=== PATIENT | female | born 1960 ===

== ENCOUNTER 2018-06-22 00:46 | Emergency (ER) | payer MEDICAID, OTHER ==
[2018-06-22 00:47] VITALS: BMI 36.2
[2018-06-22 01:05] VITALS: TEMP 98
[2018-06-22 02:10] LABS: BASO # 0.1 K/uL (0.0-0.2); EOS # 0.1 K/uL (0.0-0.7); EOS % 1.9 % (0.0-4.0); HEMOGLOBIN 11.8 g/dL (12.0-16.0); LYMPH # 1.4 K/uL (1.0-4.3); LYMPH % 23.8 % (20.0-40.0); MEAN CELL VOLUME 91.3 fl (81.0-99.0); MEAN CORPUSCULAR HEMOGLOBIN 30.2 pg (27.0-31.0); MEAN CORPUSCULAR HGB CONC 33.1 g/dL (33.0-37.0); MEAN PLATELET VOLUME 9.9 fl (7.2-11.7); MONO # 0.5 K/uL (0.0-0.8); MONO % 8.2 % (0.0-10.0); NEUT # 3.8 K/uL (1.8-7.0); NEUT % 65.1 % (50.0-75.0); RBC 3.9 Mil/uL (3.80-5.20); RED CELL DISTRIBUTION WIDTH 14.1 % (11.5-14.5); WHITE BLOOD COUNT 5.8 K/uL (4.8-10.8)
--- NOTE | 2018-06-22 02:14 | ED PDOC ---
HPI: Hypertension/Hypotension Time Seen by Provider: 06/22/18 01:11 Chief Complaint (Nursing): High Blood Pressure Chief Complaint (Provider): High Blood Pressure History Per: Patient History/Exam Limitations: no limitations Onset/Duration Of Symptoms: Days (x1) Current Symptoms Are (Timing): Better Additional Complaint(s): 57 year old female with pmHx of HTN, arrives to ED for an evaluation of elevated blood pressure. Patient states she had abdominal discomfort and urine frequency, which has resolved, but consistent with similar symptoms when her blood pressure is high. She further reports taking her Lisinopril three times today (prescribed for once daily) for relief. PMD: none provided Past Medical History Reviewed: Historical Data, Nursing Documentation, Vital Signs Vital Signs: Last Vital Signs Temp 98.0 F 06/22/18 00:53 Pulse 57 L 06/22/18 00:53 Resp 17 06/22/18 00:53 BP 173/105 H 06/22/18 00:53 Pulse Ox 99 06/22/18 00:53 - Medical History PMH: HTN - Surgical History Surgical History: Cholecystectomy - Family History Family History: States: Unknown Family Hx - Social History Current smoker - smoking cessation education provided: No Alcohol: None Drugs: Denies - Home Medications Home Medications: Ambulatory Orders Medication Instructions Recorded Hydrochlorothiazide [Microzide] 12.5 mg PO DAILY #10 cap 07/25/16 - Allergies Allergies/Adverse Reactions: Allergies Allergy/AdvReac Type Severity Reaction Status Date / Time No Known Allergies Allergy Verified 06/22/18 00:53 Review of Systems ROS Statement: Except As Marked, All Systems Reviewed And Found Negative Gastrointestinal: Positive for: Abdominal Pain (discomfort - resolved). Negative for: Nausea, Vomiting Genitourinary Female: Positive for: Other (urgency - resolved) Physical Exam - Reviewed Nursing Documentation Reviewed: Yes Vital Signs Reviewed: Yes - Physical Exam Appears: Positive for: Well, Non-toxic, No Acute Distress Head Exam: Positive for: ATRAUMATIC, NORMAL INSPECTION, NORMOCEPHALIC Skin: Positive for: Normal Color Eye Exam: Positive for: Normal appearance, EOMI, PERRL ENT: Positive for: Normal ENT Inspection Neck: Positive for: Normal Cardiovascular/Chest: Positive for: Regular Rate, Rhythm, Chest Non Tender Respiratory: Positive for: Normal Breath Sounds. Negative for: Respiratory Distress Gastrointestinal/Abdominal: Positive for: Normal Exam, Soft, Other (obese). Negative for: Tenderness Extremity: Positive for: Normal ROM (upper/lower). Negative for: Pedal Edema Neurologic/Psych: Positive for: Alert, Oriented. Negative for: Motor/Sensory Deficits - Laboratory Results Result Diagrams: 06/22/18 02:07 06/22/18 02:07 - ECG O2 Sat by Pulse Oximetry: 99 (RA) Pulse Ox Interpretation: Normal Medical Decision Making Medical Decision Making: Initial Impression: 57 year old female with urinary symptoms and abdominal discomfort in setting of known HTN. Initial Plan: * EKG * Labs Time: 312 --Labs reviewed: no significant clinical abnormality. B/P shows markable improvement. --Upon further discussion with patient, she admits that she does not take her BP medication daily as prescribed. Provider reinforces the importance of taking Lisinopril in regular daily intervals as instructed. Patient is medically stable and requires no further treatment in the ED at this time. However, upon giving discharge papers, patient becomes tearful, reports feeling depressed, and requesting to speak to a die lay out worker. --Crisis evaluation initiated. Scribe Attestation: Documented by Binta Victoria, acting as a scribe for Jarod Waddell MD. Provider Scribe Attestation: All medical record entries made by the Scribe were at my direction and personally dictated by me. I have reviewed the chart and agree that the record accurately reflects my personal performance of the history, physical exam, medical decision making, and the department course for this patient. I have also personally directed, reviewed, and agree with the discharge instructions and disposition. Disposition - Clinical Impression Clinical Impression: Hypertension - Patient ED Disposition Is Patient to be Admitted: No Counseled Patient/Family Regarding: Studies Performed, Diagnosis, Need For Followup - Disposition Disposition: Routine/Home Disposition Time: 03:13 Condition: STABLE Instructions: High Blood Pressure in Adults, Controlling Your Blood Pressure Through Lifestyle Forms: [employer] (Occitan)
[2018-06-22 02:19] LABS: ALB/GLOB RATIO 1.3 (1.0-2.1); ALBUMIN 4.5 g/dL (3.5-5.0); ALT/SGPT 25 U/L (9-52); AST/SGOT 34 U/L (14-36); BLOOD UREA NITROGEN 12 mg/dl (7-17); CALCIUM 9.1 mg/dL (8.4-10.2); GFR NON-AFRICAN AMERICAN > 60
[2018-06-22 02:52] VITALS: BP 163/95
[2018-06-22 02:53] VITALS: PULSE 52; RESP 16
[2018-06-22 02:56] LABS: SQUAMOUS EPITHIAL 1 /hpf (0-5); URINE BACTERIA OCC (<OCC); URINE BILIRUBIN NEGATIVE (NEGATIVE); URINE BLOOD SMALL (NEGATIVE); URINE CLARITY CLEAR (Clear); URINE COLOR STRAW (YELLOW); URINE GLUCOSE (UA) NEG (Normal); URINE LEUKOCYTE ESTERASE NEG Leu/uL (Negative); URINE PROTEIN NEGATIVE (NEGATIVE); URINE UROBILINOGEN 0.2-1.0 mg/dL (0.2-1.0)
[2018-06-22 03:17] VITALS: O2SAT 99
--- NOTE | 2018-06-22 17:42 | CARD ---
APPROVED REPORT Date of service: 06/22/2018 EKG Measurement Heart [id number] <Conclusion> Normal sinus rhythm with sinus arrhythmia Normal ECG
== END 2018-06-22 04:43 | disposition home or self-care (01) ==
LOC: H.ER 00:46
DX: I10 Essential (primary) hypertension (principal)

== ENCOUNTER 2018-07-29 23:16 | Emergency (ER) | payer OTHER ==
[2018-07-29 23:18] VITALS: BMI 36.2
[2018-07-29 23:38] VITALS: TEMP 98.4
--- NOTE | 2018-07-30 02:04 | ED PDOC ---
HPI: Hypertension/Hypotension Time Seen by Provider: 07/30/18 01:02 Chief Complaint (Nursing): Anxiety Chief Complaint (Provider): Hypertension History Per: Patient History/Exam Limitations: no limitations Onset/Duration Of Symptoms: Mins (prior to arrival) Current Symptoms Are (Timing): Still Present Associated Symptoms: Other (urinary frequency) Severity: Moderate Additional Complaint(s): 57 year old female with a past medical history of hypertension presents to the ED with complaints of elevated blood pressure that started just prior to arrival. Patient sates that she did not check her blood pressure at home, but felt it was elevated. Patient states that she is compliant with hypertension medications at home (lisinopril 10 mg). Patient presented to the ED 5x weeks ago for similar complaints, had a full work up (negative). Patient currently has complaints of urinary frequency. PMD: Winnie Cole MD Past Medical History Reviewed: Historical Data, Nursing Documentation, Vital Signs Vital Signs: Last Vital Signs Temp 98.4 F 07/29/18 23:36 Pulse 81 07/29/18 23:36 Resp 16 07/29/18 23:36 BP 177/104 H 07/29/18 23:36 Pulse Ox 98 07/29/18 23:36 - Medical History PMH: HTN, Hypothyroidism Denies: Diabetes, Hepatitis, HIV, Seizures, Sexually Transmitted Disease - Surgical History Surgical History: Cholecystectomy - Family History Family History: States: No Known Family Hx - Social History Current smoker - smoking cessation education provided: No Alcohol: None Drugs: Denies - Home Medications Home Medications: Ambulatory Orders Medication Instructions Recorded RX: Hydrochlorothiazide [Microzide] 12.5 mg PO DAILY #10 cap 07/25/16 - Allergies Allergies/Adverse Reactions: Allergies Allergy/AdvReac Type Severity Reaction Status Date / Time No Known Allergies Allergy Verified 06/22/18 00:53 Review of Systems ROS Statement: Except As Marked, All Systems Reviewed And Found Negative Cardiovascular: Positive for: Other (hypertension) Genitourinary Female: Positive for: Frequency Physical Exam - Reviewed Nursing Documentation Reviewed: Yes Vital Signs Reviewed: Yes - Physical Exam Appears: Positive for: Well, Non-toxic, No Acute Distress Head Exam: Positive for: ATRAUMATIC, NORMOCEPHALIC Cardiovascular/Chest: Positive for: Regular Rate, Rhythm, Chest Non Tender Respiratory: Positive for: Normal Breath Sounds Neurologic/Psych: Positive for: Alert, Oriented (3x) - ECG O2 Sat by Pulse Oximetry: 98 (RA) Pulse Ox Interpretation: Normal Medical Decision Making Medical Decision Makin:02 Initial impression: 57 year old female with urinary frequency and subjective concern regarding blood pressure. Initial plan: * upreg * udip * urinalysis * accucheck * reevaluation 1:45 Patient's blood pressure has stayed within normal limits during ED stay. Udip: normal Accucheck: normal Upon provider reevaluation patient is feeling better, is medically stable, and requires no further treatment in the ED at this time. Patient will be discharged home. Counseling was provided and all questions were answered regarding diagnosis of hypertension and provider reinforced need to follow up with PMD regarding blood pressure. There is agreement to discharge plan. Return if symptoms persist or worsen. Scribe Attestation: Documented by Tamanna Bruce, acting as a scribe for Jarod Waddell MD. Provider Scribe Attestation: All medical record entries made by the Scribe were at my direction and personally dictated by me. I have reviewed the chart and agree that the record accurately reflects my personal performance of the history, physical exam, medical decision making, and the department course for this patient. I have also personally directed, reviewed, and agree with the discharge instructions and disposition. Disposition - Clinical Impression Clinical Impression: Hypertension - Disposition Disposition: Routine/Home Disposition Time: 01:45 Condition: STABLE Instructions: High Blood Pressure in Adults, Controlling Your Blood Pressure Through Lifestyle Forms: [employer] (Romanian)
[2018-07-30 02:49] VITALS: BP 150/90; PULSE 69; RESP 18
[2018-07-30 05:17] VITALS: O2SAT 98
== END 2018-07-30 02:46 | disposition home or self-care (01) ==
LOC: H.ER 23:16
DX: I10 Essential (primary) hypertension (principal); E03.9 Hypothyroidism, unspecified

== ENCOUNTER 2018-12-29 02:20 | Emergency (ER) | payer OTHER ==
[2018-12-29 02:20] VITALS: BMI 36.2
[2018-12-29 02:58] VITALS: RESP 18; TEMP 98.3; O2SAT 98
--- NOTE | 2018-12-29 03:35 | ED PDOC ---
HPI: Hypertension/Hypotension Time Seen by Provider: 12/29/18 03:00 Chief Complaint (Nursing): High Blood Pressure History Per: Patient History/Exam Limitations: no limitations Onset/Duration Of Symptoms: Mins Current Symptoms Are (Timing): Better Additional Complaint(s): 58 y/o with history of hypertension who is compliant with her medication presents to ED tonight because she started feeling tingling in the back of her head and was concerned her blood pressure was getting higher. Patient states she took extra blood pressure medication and became very anxious. She states she and her daughter live at home alone and was concerned something might happen prompting ED visit. On arrival to ED she reports feeling better. Past Medical History Reviewed: Historical Data, Nursing Documentation, Vital Signs Vital Signs: Last Vital Signs Temp 98.3 F 12/29/18 02:56 Pulse 81 12/29/18 02:56 Resp 18 12/29/18 02:56 BP 155/94 H 12/29/18 02:56 Pulse Ox 98 12/29/18 02:56 - Medical History PMH: HTN, Hypothyroidism Denies: Diabetes, Hepatitis, HIV, Seizures, Sexually Transmitted Disease - Surgical History Surgical History: Cholecystectomy - Family History Family History: States: Unknown Family Hx - Home Medications Home Medications: Ambulatory Orders Medication Instructions Recorded Hydrochlorothiazide [Microzide] 12.5 mg PO DAILY #10 cap 07/25/16 - Allergies Allergies/Adverse Reactions: Allergies Allergy/AdvReac Type Severity Reaction Status Date / Time No Known Allergies Allergy Verified 12/29/18 02:58 Review of Systems ROS Statement: Except As Marked, All Systems Reviewed And Found Negative Psych: Positive for: Anxiety Physical Exam - Reviewed Nursing Documentation Reviewed: Yes Vital Signs Reviewed: Yes - Physical Exam Appears: Positive for: Well, Non-toxic, No Acute Distress Head Exam: Positive for: ATRAUMATIC, NORMAL INSPECTION, NORMOCEPHALIC Skin: Positive for: Normal Color, Warm, DRY Eye Exam: Positive for: EOMI, Normal appearance, PERRL ENT: Positive for: Normal ENT Inspection Neck: Positive for: Normal, Painless ROM Cardiovascular/Chest: Positive for: Regular Rate, Rhythm. Negative for: Murmur Respiratory: Positive for: Normal Breath Sounds. Negative for: Respiratory Distress Gastrointestinal/Abdominal: Positive for: Normal Exam, Soft. Negative for: Tenderness Back: Positive for: Normal Inspection Extremity: Positive for: Normal ROM. Negative for: Pedal Edema, Deformity Neurological/Psych: Positive for: Awake, Alert, Normal Tone. Negative for: Motor/Sensory Deficits - ECG ECG Rhythm: Positive for: Normal QRS, Normal ST Segment, Sinus Rhythm Rate: 72 O2 Sat by Pulse Oximetry: 98 (RA) Pulse Ox Interpretation: Normal Medical Decision Making Medical Decision Making: Time: 03:18 A/P: 58 y/o with anxiety state. Will check EKG and glucose. Will likely refer patient back to PMD. * EKG * Glucose 3:45 EKG normal, FS normal Will refer patient to PMD for further workup as needed Scribe Attestation: Documented by Johnathon Shane, acting as a scribe for Jarett Auguste MD. Provider Scribe Attestation: All medical record entries made by the Scribe were at my direction and personally dictated by me. I have reviewed the chart and agree that the record accurately reflects my personal performance of the history, physical exam, medical decision making, and the department course for this patient. I have also personally directed, reviewed, and agree with the discharge instructions and disposition. Disposition - Clinical Impression Clinical Impression: Hypertension - Patient ED Disposition Is Patient to be Admitted: No - Disposition Referrals: Tatianna Franco [Outside] Disposition: Routine/Home Disposition Time: 03:46 Condition: IMPROVED Instructions: High Blood Pressure in Adults Forms: [employer] (Croatian)
[2018-12-29 03:54] VITALS: BP 140/79; PULSE 71
--- NOTE | 2018-12-29 17:26 | CARD ---
APPROVED REPORT Date of service: 12/29/2018 EKG Measurement Heart [id number] <Conclusion> Normal sinus rhythm Normal ECG
== END 2018-12-29 04:00 | disposition home or self-care (01) ==
LOC: H.ER 02:20
DX: I10 Essential (primary) hypertension (principal); F41.1 Generalized anxiety disorder; E03.9 Hypothyroidism, unspecified